=== PATIENT | male | born 1960 | race Caucasian/White ===

== ENCOUNTER 2018-05-21 17:24 | Emergency (ER) | payer OTHER ==
[~2018-05-21] VITALS: Ht 152.4 cm; Wt 74.8 kg
[~2018-05-21 17:24] MED LIST: AMLODIPINE BESYL5 M1 PO; ATENOLOL50 MG PO; CIPRO500 MG PO; FLA500 PO
[2018-05-21 17:39] VITALS: Ht 152.4 cm; Wt 74.8 kg
[2018-05-21 19:29] VITALS: BP 136/82
== END 2018-05-21 19:29 | disposition home or self-care (01) ==
LOC: ED 17:24
DX: J06.9 Acute upper respiratory infection, unspecified (principal); I10 Essential (primary) hypertension; Z88.8 Allergy status to other drugs, medicaments and biological substances
CPT/HCPCS: J7512; J7613